=== PATIENT | male | born 2000 | race Hispanic/Latino ===

== ENCOUNTER 2025-06-25 13:07 | Emergency (ER) | payer BC, OTHER ==
[2025-06-25 14:58] LABS: Bacteria/HPF None Seen HPF (None Seen); CAUTI Indications for Culture Dysuria,urgency,freq; Glucose, Urine (Dipstick) Normal (Negative); Leukocyte Negative Leu/uL (Negative); Protein, Urine (Dipstick) Negative (Neg-Trace); RBC/HPF None Seen HPF (0-3); Specific Gravity, Urine 1.006 (1.002-1.036); WBC/HPF 0-3 HPF (0-3)
[2025-06-25 15:02] LABS: Urine Culture Reflex No No
[2025-06-25 17:48] LABS: #Basophils Less than 0.03 10x3/uL (0.0-0.2); #Eosinophils 0.10 10x3/uL (0.0-0.7); #Monocytes 0.36 10x3/uL (0.11-0.59); #Neutrophils 4.02 10x3/uL (1.40-6.50); %Basophils 0.3 % (0.0-1.0); %Eosinophils 1.6 % (0.0-10.0); %Lymphocytes 27.3 % (21.0-51.0); %Monocytes 5.8 % (0.0-10.0); %Neutrophils 64.8 % (42.0-75.0); Hematocrit 45.9 % (42.0-52.0); Hemoglobin 15.8 g/dL (14.0-18.0); Mean Corpuscular Hemoglobin 29.9 pg (27.0-31.0); Mean Corpuscular Volume 86.8 fL (78.0-98.0); Platelet Count 246 10x3/uL (130-400); Red Blood Cell (RBC) Count 5.29 mill/uL (4.70-6.10); White Blood Cell (WBC) Count 6.20 10x3/uL (4.8-10.8)
[2025-06-25] MEDS ORDERED: Orphenadrine Citrate 60 MG/2 ML VIAL ONE (18:00)
[2025-06-25] MEDS ORDERED: HYDROcodone/Acetaminophen 5/325 mg Tablet ONE (18:00)
[2025-06-25 18:06] LABS: ALT (SGPT) 27 U/L (Less than 45); AST (SGOT) 31 U/L (11-34); Albumin 5.0 g/dL (3.1-4.5); Alkaline Phosphatase 59 U/L (40-110); Anion Gap 14 mmol/L (10-20); BUN (Urea Nitrogen) 13 mg/dL (8.9-20.6); Bilirubin, Total 0.8 mg/dL (0.3-1.2); Calc. Creatinine Clearance 0 mL/min (70-130); Calcium 9.3 mg/dL (7.8-10.44); Carbon Dioxide 26 mmol/L (22-29); Chloride 106 mmol/L (98-107); Globulin 3.0 g/dL (2.4-3.5); Glucose 103 mg/dL (70-105); Potassium 4.3 mmol/L (3.5-5.1); Sodium 142 mmol/L (136-145)
== END 2025-06-25 18:51 | disposition home or self-care (01) ==
LOC: ERS 13:07
DX: M54.41 Lumbago with sciatica, right side (principal)
CPT/HCPCS: 36415; 80053; 81001; 85025; 96372; 99283; J2360; J2919